=== PATIENT | female | born 1995 | race African-American/Black ===

== ENCOUNTER 2020-10-13 18:09 | Emergency (ER) | payer MEDICAID ==
[~2020-10-13] VITALS: Ht 167.6 cm; Wt 104.0 kg
[2020-10-13 22:57] VITALS: BP 130/72
== END 2020-10-13 23:00 | disposition home or self-care (01) ==
LOC: ER 18:09
DX: K52.9 Noninfective gastroenteritis and colitis, unspecified (principal); J45.909 Unspecified asthma, uncomplicated; I49.9 Cardiac arrhythmia, unspecified; Z20.828 Contact with and (suspected) exposure to other viral communicable diseases
CPT/HCPCS: 93005; 99283; C9803; U0003

== ENCOUNTER 2020-10-15 08:07 | Emergency (ER) | payer MEDICAID ==
[~2020-10-15] VITALS: Ht 172.7 cm; Wt 80.0 kg
[2020-10-15 09:04] LABS: BASOPHILS % 1.1 % (0.0-2.0); EOSINOPHILS % 0.4 % (0.0-5.0); HEMATOCRIT. 41.9 % (36.0-48.0); HEMOGLOBIN. 13.9 g/dL (12.0-16.0); LYMPHOCYTES % 22.8 % (20.0-50.0); MEAN CORPUSCULAR HEMOGLOBIN 30.1 pg (28.0-32.0); MEAN CORPUSCULAR VOLUME 90.7 fL (81.0-99.0); MEAN PLATELET VOLUME 8.9 fl (7.4-10.4); MONOCYTES % 5.3 % (2.0-8.0); NEUTROPHILS % 70.4 % (40.0-76.0); PLATELET 240 x1000/uL (130-400); RED BLOOD CELL COUNT 4.62 mill/uL (4.2-5.4); RED CELL DISTRIBUTION WIDTH 13.5 % (11.6-14.6)
[2020-10-15 09:08] LABS: CHLORIDE 106 mEq/L (98-107)
[2020-10-15 09:15] LABS: *AMPHETAMINES SCREEN URINE NEGATIVE (NEGATIVE); *BARBITURATES SCREEN URINE NEGATIVE (NEGATIVE); *BENZODIAZEPINES SCREEN URINE NEGATIVE (NEGATIVE); *COCAINE SCREEN URINE NEGATIVE (NEGATIVE); METHADONE URINE SCREEN NEGATIVE (NEGATIVE); OPIATES URINE SCREEN NEGATIVE (NEGATIVE)
[2020-10-15 09:16] LABS: CANNABINOID URINE SCREEN PRESUMTIVE POSITIVE (NEGATIVE); PHENCYCLIDINE URINE SCREEN NEGATIVE (NEGATIVE)
[2020-10-15 09:30] LABS: HCG SCREEN NEGATIVE
[2020-10-15 11:55] VITALS: BP 130/80
== END 2020-10-15 11:55 | disposition home or self-care (01) ==
LOC: ER 08:07
DX: M54.12 Radiculopathy, cervical region (principal); R06.09 Other forms of dyspnea; J45.909 Unspecified asthma, uncomplicated; F12.10 Cannabis abuse, uncomplicated
CPT/HCPCS: 36415; 71045; 72040; 80053; 80305; 81025; 83880; 84484; 84703; 85025; 93005; 99285

== ENCOUNTER 2020-10-17 05:08 | Emergency (ER) | payer MEDICAID, OTHER ==
[~2020-10-17] VITALS: Ht 167.6 cm; Wt 102.0 kg
[2020-10-17 05:29] VITALS: BP 104/60
== END 2020-10-17 10:13 | disposition left against medical advice (07) ==
LOC: ER 05:08
DX: Z53.21 Procedure and treatment not carried out due to patient leaving prior to being seen by health care provider (principal)